=== PATIENT | female | born 1945 | race Caucasian/White ===

== ENCOUNTER 2017-04-17 03:07 | Inpatient (IN) | payer MEDICARE ==
[2017-04-17] MEDS ORDERED: NS 0.9% 1000 ML* 1,000 ML IV ONE (03:33)
[2017-04-17] MEDS ORDERED: Azithromycin IV(*) 500 MG in NS 0.9% 250 ML* 250 ML IVPB ONE (03:59)
[2017-04-17] MEDS ORDERED: cefTRIAXone(*) 1 GM in NS 0.9% 50 ML* 50 ML IVPB ONE (03:59)
[2017-04-17 04:21] LABS: Hematocrit 30 % (35-47); Hemoglobin 10.4 g/dl (12.0-16.0); Mean Corpuscular HGB Conc 34 g/dl (31-36); Mean Corpuscular Hemoglobin 30 pg (27-31); Mean Corpuscular Volume 88 fL (80-97); Mean Platelet Volume 7 um3 (7.4-10.4); Red Blood Count 3.43 10^6/ul (4.0-5.4); Red Cell Distribution Width 13 % (10.5-15); White Blood Count 10.3 10^3/ul (3.5-10.8)
[2017-04-17 04:25] LABS: Add Diff/Slide Review? Slide Review Added; Comments Flag Yes
[2017-04-17 04:36] LABS: ALT 22 U/L (7-52); AST 26 U/L (13-39); Alkaline Phosphatase 90 U/L (34-104); Anion Gap 10 mmol/L (2-11); BUN/Creatinine Ratio 30.9 (8-20); Blood Urea Nitrogen 34 mg/dL (6-24); C Reactive Protein 337.99 mg/L (< 5.00); CO2 Carbon Dioxide 22 mmol/L (22-32); Calcium 9.6 mg/dL (8.6-10.3); Chloride 97 mmol/L (101-111); EGFR African American 62.6 (>60); EGFR Non-African American 48.7 (>60); Globulin 3.5 g/dL (2-4); Glucose 205 mg/dL (70-100); Lipase < 10 U/L (11.0-82.0); Magnesium 1.7 mg/dL (1.9-2.7); Potassium 3.5 mmol/L (3.5-5.0); Sodium 129 mmol/L (133-145); Total Protein 6.5 g/dL (6.4-8.9)
[2017-04-17 04:37] LABS: PCO2 Arterial 37 mmHg (35-45)
[2017-04-17] MEDS ORDERED: Vancomycin(*) 1,000 MG in NS 0.9% 250 ML* 250 ML IVPB ONE (04:38)
[2017-04-17] MEDS ORDERED: Ondansetron INJ* 2 MG/ML VIAL IV PRN (05:37)
[2017-04-17] MEDS ORDERED: Morphine INJ* 2 MG/ML 1 ML SYRINGE (TWO MG - NEW SYRINGE VERSION) IV PRN (05:37)
[2017-04-17] MEDS ORDERED: Albuterol/Ipratropium NEB.SOL* Albuterol 2.5 MG/Ipratropium 0.5 MG 3 ML INH PRN (05:59)
[2017-04-17] MEDS ORDERED: Albuterol 2.5 MG/3 ML NEB.SOL* (0.083%) INH PRN (05:59)
[2017-04-17] MEDS ORDERED: methylPREDNISolone 125 MG* 2 ML VIAL IV ONE (05:59)
[2017-04-17] MEDS ORDERED: Heparin VIAL(*) 5000 UNITS/ML VIAL (FIVE THOUSAND) IV SCH (06:00)
[2017-04-17] MEDS ORDERED: NS 0.9% 1000 ML* 2,000 ML IV ONE (06:08)
[2017-04-17] MEDS ORDERED: NS 0.9% 1000 ML* 1,000 ML IV SCH (06:15)
[2017-04-17 06:25] LABS: Urine Bilirubin Negative (Negative); Urine Glucose 3+(>=500 mg/dL) (Negative); Urine Nitrite Negative (Negative)
--- NOTE | 2017-04-17 06:41 | ED ---
Ayesha Plata Gabriel, scribed for Nehemiah Chaudhary on 04/17/17 at 0336 . Altered Mental Status - HPI Summary HPI Summary: This patient is a 72 year old F BIBA to [facility] accompanied by son with a chief complaint of AMS since 6 hours prior. He son states she hasnt eaten in 3 days, has been sleeping more than usual, and hasnt been acting like herself. She does not recognize her son and isnt verbal. - History Of Current Complaint Chief Complaint: EDAltMentalStatus Stated Complaint: AMS Time Seen by Provider: 04/17/17 03:28 Hx Obtained From: Patient Onset/Duration: Still Present Timing: Constant Character: Confusion - Allergies/Home Medications Allergies/Adverse Reactions: Allergies Allergy/AdvReac Type Severity Reaction Status Date / Time Unable to Obtain Allergy Verified 04/17/17 03:26 Home Medications: Home Medications Calcium 250 mg PO 04/17/17 [History] DULoxetine DR CAP* [Cymbalta CAP*] 90 mg PO DAILY 04/17/17 [History Confirmed ] Docusate Sodium [Colace] 100 mg PO 04/17/17 [History] Dronabinol [Marinol] 10 mg PO 04/17/17 [History] Fenofibrate Micronized [Fenofibrate] 43 mg PO 04/17/17 [History] Gabapentin CAP(*) [Neurontin 100 mg CAP(*)] 200 mg PO TID 04/17/17 [History Confirmed 04/17/17] Lidocaine PATCH 5%* [Lidoderm 5% Patch*] 2 patch TRANSDERM DAILY 04/17/17 [ History Confirmed 04/17/17] Methylphenidate HCl [Ritalin] 5 mg PO 04/17/17 [History] Methylphenidate HCl [Ritalin] 20 mg PO 04/17/17 [History] Olmesartan Medoxomil [Benicar] 20 mg PO 04/17/17 [History] Omeprazole CAP* [Prilosec CAP* 20 MG] 20 mg PO DAILY 04/17/17 [History Confirmed 04/17/17] Oxycodone IR 10 MG(NF) 10 mg PO 04/17/17 [History] oxyCODONE SR TAB(*) [Oxycontin(*)] 15 mg PO 04/17/17 [History] PMH/Surg Hx/FS Hx/Imm Hx Previously Healthy: No Endocrine/Hematology History: Reports: Hx Diabetes - Cancer History Cancer Type, Location and Year: lung Infectious Disease History: No Infectious Disease History: Denies: Traveled Outside the [place] in Last 30 Days - Family History Known Family History: Positive: Hypertension, Diabetes, Other - cancer - Social History Alcohol Use: None Hx Substance Use: No Substance Use Type: Reports: Prescribed Hx Tobacco Use: No Smoking Status (MU): Never Smoked Tobacco Review of Systems Positive: Other - AMS All Other Systems Reviewed And Are Negative: No Physical Exam - Summary Physical Exam Summary: Appearance: lethargic and confused Skin: warm, dry, reflects adequate perfusion Head/face: normal Eyes: EOMI, FREDI ENT: Dry mucous membranes Neck: supple, non-tender Respiratory:decreased bs rt side Cardiovascular: Tachycardic Abdomen: non-tender, soft Bowel: present Musculoskeletal: normal, strength/ROM intact Neuro: lethargic and confused Triage Information Reviewed: Yes Vital Signs On Initial Exam: Initial Vitals Temp Pulse Resp BP Pulse Ox 98.1 F 100 10 127/103 90 04/17/17 03:17 04/17/17 03:17 04/17/17 03:17 04/17/17 03:17 04/17/17 03:17 Vital Signs Reviewed: Yes - Marshall Coma Scale Coma Scale Total: 10 Diagnostics - Vital Signs Vital Signs Temp Pulse Resp BP Pulse Ox 04/17/17 03:17 98.1 F 100 10 127/103 90 - Laboratory Lab Results: Lab Results 04/17/17 04/17/17 04/17/17 Range/Units 04:13 04:13 04:13 WBC 10.3 (3.5-10.8) 10^3/ul RBC 3.43 L (4.0-5.4) 10^6/ul Hgb 10.4 L (12.0-16.0) g/dl Hct 30 L (35-47) % MCV 88 (80-97) fL MCH 30 (27-31) pg MCHC 34 (31-36) g/dl RDW 13 (10.5-15) % Plt Count 258 (150-450) 10^3/ul MPV 7 L (7.4-10.4) um3 Neut % (Auto) 82.7 (38-83) % Lymph % (Auto) 7.1 L (25-47) % [place] % (Auto) 9.6 H (1-9) % Eos % (Auto) 0.2 (0-6) % Baso % (Auto) 0.4 (0-2) % Absolute Neuts (auto) 8.5 H (1.5-7.7) 10^3/ul Absolute Lymphs (auto) 0.7 L (1.0-4.8) 10^3/ul Absolute Monos (auto) 1.0 H (0-0.8) 10^3/ul Absolute Eos (auto) 0 (0-0.6) 10^3/ul Absolute Basos (auto) 0 (0-0.2) 10^3/ul Absolute Nucleated RBC 0 10^3/ul Nucleated RBC % 0 INR (Anticoag Therapy) 1.05 (0.89-1.11) APTT 26.7 (26.0-36.3) seconds Patient Temperature ABG pH (7.35-7.45) ABG pH (Temp Correct) ABG pCO2 (35-45) mmHg ABG pCO2 (Temp Corrct ABG pO2 (80-100) mmHg ABG pO2 (Temp Correct ABG HCO3 (19-31) mmol/L ABG O2 Saturation (95-98) % ABG Base Excess (-2.0-2.0) Respiration Rate O2 Delivery Device Ventilator Type Vent Mode FiO2 Inspiratory Time PEEP Pressure Support Pressure Control EPAP IPAP BiPAP Sodium 129 L (133-145) mmol/L Potassium 3.5 (3.5-5.0) mmol/L Chloride 97 L (101-111) mmol/L Carbon Dioxide 22 (22-32) mmol/L Anion Gap 10 (2-11) mmol/L BUN 34 H (6-24) mg/dL Creatinine 1.10 H (0.51-0.95) mg/dL Est GFR ( Amer) 62.6 (>60) Est GFR (Non-Af Amer) 48.7 (>60) BUN/Creatinine Ratio 30.9 H (8-20) Glucose 205 H (70-100) mg/dL Lactic Acid (0.5-2.0) mmol/L Calcium 9.6 (8.6-10.3) mg/dL Magnesium 1.7 L (1.9-2.7) mg/dL Total Bilirubin 0.90 (0.2-1.0) mg/dL AST 26 (13-39) U/L ALT 22 (7-52) U/L Alkaline Phosphatase 90 (34-104) U/L Troponin I 0.00 (<0.04) ng/mL C-Reactive Protein 337.99 H (< 5.00) mg/L Total Protein 6.5 (6.4-8.9) g/dL Albumin 3.0 L (3.2-5.2) g/dL Globulin 3.5 (2-4) g/dL Albumin/Globulin Ratio 0.9 L (1-3) Lipase < 10 L (11.0-82.0) U/L 04/17/17 04/17/17 Range/Units 04:13 04:28 WBC (3.5-10.8) 10^3/ul RBC (4.0-5.4) 10^6/ul Hgb (12.0-16.0) g/dl Hct (35-47) % MCV (80-97) fL MCH (27-31) pg MCHC (31-36) g/dl RDW (10.5-15) % Plt Count (150-450) 10^3/ul MPV (7.4-10.4) um3 Neut % (Auto) (38-83) % Lymph % (Auto) (25-47) % [place] % (Auto) (1-9) % Eos % (Auto) (0-6) % Baso % (Auto) (0-2) % Absolute Neuts (auto) (1.5-7.7) 10^3/ul Absolute Lymphs (auto) (1.0-4.8) 10^3/ul Absolute Monos (auto) (0-0.8) 10^3/ul Absolute Eos (auto) (0-0.6) 10^3/ul Absolute Basos (auto) (0-0.2) 10^3/ul Absolute Nucleated RBC 10^3/ul Nucleated RBC % INR (Anticoag Therapy) (0.89-1.11) APTT (26.0-36.3) seconds Patient Temperature Not Reportable ABG pH 7.42 (7.35-7.45) ABG pH (Temp Correct) Not Reportable ABG pCO2 37 (35-45) mmHg ABG pCO2 (Temp Corrct Not Reportable ABG pO2 59 L* (80-100) mmHg ABG pO2 (Temp Correct Not Reportable ABG HCO3 24.6 (19-31) mmol/L ABG O2 Saturation 93.4 L (95-98) % ABG Base Excess -0.3 (-2.0-2.0) Respiration Rate Not Reportable O2 Delivery Device oxymask Ventilator Type Not Reportable Vent Mode Not Reportable FiO2 Not Reportable Inspiratory Time Not Reportable PEEP Not Reportable Pressure Support Not Reportable Pressure Control Not Reportable EPAP Not Reportable IPAP Not Reportable BiPAP Not Reportable Sodium (133-145) mmol/L Potassium (3.5-5.0) mmol/L Chloride (101-111) mmol/L Carbon Dioxide (22-32) mmol/L Anion Gap (2-11) mmol/L BUN (6-24) mg/dL Creatinine (0.51-0.95) mg/dL Est GFR ( Amer) (>60) Est GFR (Non-Af Amer) (>60) BUN/Creatinine Ratio (8-20) Glucose (70-100) mg/dL Lactic Acid 1.0 (0.5-2.0) mmol/L Calcium (8.6-10.3) mg/dL Magnesium (1.9-2.7) mg/dL Total Bilirubin (0.2-1.0) mg/dL AST (13-39) U/L ALT (7-52) U/L Alkaline Phosphatase (34-104) U/L Troponin I (<0.04) ng/mL C-Reactive Protein (< 5.00) mg/L Total Protein (6.4-8.9) g/dL Albumin (3.2-5.2) g/dL Globulin (2-4) g/dL Albumin/Globulin Ratio (1-3) Lipase (11.0-82.0) U/L Result Diagrams: 04/17/17 04:13 04/17/17 04:13 Lab Statement: Any lab studies that have been ordered have been reviewed, and results considered in the medical decision making process. - Radiology CXR Radiology Interpretation Completed By: ED Physician - right upper and lower lobe infiltrate - CT CT Head CT Interpretation Completed By: Radiologist - mucosal thickening right maxillary sinus ED physician has reviewed this radiology report and agrees. - EKG 3:54 Cardiac Rate: NL EKG Rhythm: Sinus Rhythm - NSR at 98 BPM EKG Interpretation: Non specific ST/T changes Altered Mental Statu Course/Dx - Course Assessment/Plan: This patient is a 72 year old F BIBA to [facility] accompanied by son with a chief complaint of AMS since 6 hours prior. He son states she hasnt eaten in 3 days, has been sleeping more than usual, and hasnt been acting like herself. She does not recognize her son and isnt verbal. An EKG reveals NSR. CXR reveals, right lobe infiltrate. CT Brain reveals, per radiologist, mucosal thickening right maxillary sinus. Blood was drawn as well as an ABG which showed an O2 of 59 L. In the ED course the patient was given Albuterol and Azithromycin. We discussed patient care with Dr. Fontanez and they agreed to admit the patient. Patient will be admitted with a diagnoses of PNA, AMS, Septic shock , aspiration failure, and lung cancer. Patient with have follow up with Dr. Fontanez. - Diagnoses Differential Diagnosis/HQI/PQRI: CVA, Hypoxia, Intracranial Bleed, Metabolic Disorder, Sepsis, Other - septic shock/pneumonia/dehydration/lung cancer Discharge Diagnoses: PNA (pneumonia), Altered mental status, Septic shock, Dehydration, aspiration failure , Lung cancer - Provider Notifications Discussed Care Of Patient With: Herminia Fontanez Time Discussed With Above Provider: 05:29 Instructed by Provider To: Other - We discussed patient care with Dr. Fontanez and they agreed to admit the patient. - Critical Care Time Critical Care Time: 75-104 min - 60 minutes Discharge - Discharge Plan Condition: Stable Disposition: ADMITTED TO [facility] documentation as recorded by the Ayesha henderson Gabriel accurately reflects the service I personally performed and the decisions made by , Nehemiah Chaudhary.
[2017-04-17] MEDS: Heparin DRIP 25,000 UNITS(*) 25,000 UNITS/500 ML BAG IVPB SCH ×2 (06:48→07:54)
[2017-04-17] MEDS ORDERED: Cefepime 2 GM in Dextrose(*) 2 GM/50 ML BAG IV SCH (07:00)
--- NOTE | 2017-04-17 08:05 | RAD ---
INDICATION: Altered mental status. COMPARISON: There are no prior studies available for comparison. TECHNIQUE: A portable view of the chest was obtained. FINDINGS: The heart is within normal limits in size. The lungs are underinflated. There is a dense infiltrate present in the right mid and lower lung field and a round infiltrate which projects over the left hilar region. No pleural effusion is seen. IMPRESSION: BILATERAL INFILTRATES, RECOMMEND FOLLOW-UP CHEST X-RAYS TO RESOLUTION.
--- NOTE | 2017-04-17 08:06 | RAD ---
INDICATION: Altered mental status COMPARISON: None. TECHNIQUE: Contiguous axial sections of the brain were obtained from the skull base to the vertex without contrast. FINDINGS: The ventricles, cisterns and sulci are within normal limits. The cho-white matter differentiation is adequately maintained and there is no sulcal effacement. No significant focal abnormality or mass effect is present. There is no evidence for intracranial hemorrhage. Incidental note is made of hyperostosis frontalis interna. No significant focal osseous abnormality is present. There is moderate mucosal thickening and material in the partially visualized right maxillary sinus. IMPRESSION: Moderate mucosal thickening of the right maxillary sinus in this otherwise nonacute CT of the brain.
--- NOTE | 2017-04-17 09:46 | HP ---
CC: Dr. Minor * HISTORY AND PHYSICAL: DATE OF ADMISSION: 04/17/17 TIME OF EVALUATION: 0600 PRIMARY CARE PHYSICIAN: Dr. Minor, in [place] CHIEF COMPLAINT: Altered mental status. HISTORY OF PRESENT ILLNESS: This is a 72-year-old female who came in with altered mental status, unresponsive. The history was obtained from the son who is at the bedside and the daughter, Deena Conner, his healthcare proxy, over the phone. The patient normally resides in [place]. She just moved in to her daughter's house back in December 2016, who has been caring for her. Her children drove her to [place] to spend 2 weeks with the son, so the daughter could have a break. She came on 04/07/17. She spent most of her time in bed, which is not unusual for her. In the last 3 to 4 days, she has become more somnolent, not eating or drinking. She vomited 2 nights ago. Last evening, she was more altered. The son called the daughter and the daughter recommended coming to the emergency room for further evaluation. She never had any issues with altered mental status in the past. She has a lot of issues with chronic pain, complains of pain all the time. The son thought she was getting a cold. There had been a few sick contacts. Otherwise, review of systems is limited. In the emergency room, the patient was unresponsive, noted to be hypoxic, was placed on BiPAP, had labs, was given 500 mg of azithromycin, ceftriaxone 1 g, and vancomycin, and was referred to the hospitalist service for further evaluation. The patient has not had any significant weight loss according to the daughter. She has had decreased p.o. The daughter has been really encouraging improvement in her appetite. In the emergency room, I spoke with the son, the daughter, and also the primary care physician regarding gravity of the situation and concern for her prognosis. The primary care physician, Dr. Minor, does not think she wants to be intubated, the daughter would like her to be a full code until she arrives to the bedside for further assessment and reevaluation. PAST MEDICAL HISTORY: 1. Stage 3 lung cancer, diagnosed in 2009, status post surgery, chemo, and radiation; had a recurrence, diagnosed back in December 2015, was on Tarceva for 1 to 2 months, but could not tolerate the side effects. She has been having PET scan every few months. The tumor appears to be slow growing. The goal is to build up the strength, so that she can start a new targeted, directed therapy. 2. Diabetes. 3. Chronic back pain. 4. Spinal stenosis. 5. GERD. MEDICATIONS: Unknown. We will obtain med rec. FAMILY HISTORY: Unable to obtain. SOCIAL HISTORY: As mentioned, the patient lives in [place], just moved in with her daughter back in December. No history of smoking, alcohol or illicit drug use. She has 3 children. Her daughter, Deena Conner, is her healthcare proxy, phone # [phone]. CODE STATUS: As mentioned, the daughter wants her to be intubated. She is going to speak with the primary care physician again regarding prognosis as the primary care physician does not feel that the patient would want to be intubated. REVIEW OF SYSTEMS: Limited and unable to obtain due to patient's altered mental status. PHYSICAL EXAMINATION GENERAL: No acute distress, unresponsive, does moan to tactile stimuli. VITAL SIGNS: Temp 98.1, pulse rate 100, respiratory rate 12, oxygen saturation 98% on BiPAP of FiO2 100%, blood pressure 95/63. HEENT: Head normocephalic. Eyes with purulent drainage bilaterally. Conjunctivae injected. Pupils are sluggish bilaterally. Oropharynx: BiPAP is in place. NECK: Supple. RESPIRATORY: Coarse rhonchorous breath sounds bilaterally with expiratory wheezing. CARDIAC: Tachycardiac. ABDOMEN: Soft, nontender. EXTREMITIES: Trace pretibial edema NEUROLOGIC: The patient is somnolent, moans with tactile stimulation. No spontaneous movements. DIAGNOSTIC STUDIES/LAB DATA: White count 10.3, hemoglobin 10.4, hematocrit 30 , platelets 258. INR is 1.05. Blood gas pH 7.42, PCO2 of 37, PO2 of 59. Sodium 129, potassium 3.5, chloride 97, bicarb 22, BUN 34, creatinine 1.10, glucose 205, magnesium 1.7. CRP is 337. Troponin is 0. Chest x-ray: Significant opacification and interstitial edema on the right lung with opacification and apparent mass-like appearance on the right, with some prominent interstitial markings on the left side as well. EKG shows normal sinus rhythm. Head CT with no acute findings. ASSESSMENT: This is a 72-year-old female with past medical history of lung cancer with a poor performance status, who presented to the emergency room with altered mental status, found to be in acute respiratory failure. 1. Acute respiratory failure. Assessment: The patient is hypoxic on BiPAP, but maintaining her sats on 100% FiO2. The concern is progression of her malignancy with likely underlying pneumonia and possibly PE in the setting of malignancy and a long car ride about a week ago. I have spoken with the son and daughter and the primary care at length regarding her poor prognosis. I also spoke with Dr. Lopez again. I have the impression that the patient would not want to be intubated; however, the daughter, who is the primary caregiver does not want to make that decision until she is present. The plan is to maintain her on BiPAP for now. We will lower her FiO2 per Dr. Lopez's suggestion to see if she can maintain her sats. If she cannot maintain her sats, then we will have to re-discuss intubation. We will continue her on broad-spectrum antibiotics including cefepime and azithromycin. I am going to give her a dose of Solu-Medrol as well in the setting of her wheezing and breathing treatments for concern for PE and place her on heparin until she becomes more stabilized to get a CTA of the chest. We will follow up on her blood cultures and Dr. Lopez to take over service in the morning. 2. Altered mental status A. Unclear the etiology. She appears to be on a lot of narcotics for chronic pain. Could be encephalopathy from respiratory failure. Plan Recommend further investigation if mentation does not improve. 2. Chronic medical problems. The patient has significant amount of pain. We will give morphine 2 mg every 2 hours as needed. I will obtain med rec, at this time she is n.p.o. though. 3. FEN: N.p.o. IV fluids ordered. 4. DVT prophylaxis: The patient scores high risk. She will be on heparin drip right now prophylactically for presumed PE. 5. Code status: Currently is a full code, but this needs to be readdressed once the daughter arrives into town. PATIENT TIME: Greater than 75 minutes were spent doing the history and physical , more than half the time spent in direct patient contact, speaking with the family, the primary care physician, and Dr. Lopez. [id number]/[facility] #: [id number] [facility]
[2017-04-17] MEDS ORDERED: Dextrose 50% Syringe 50 ML* 25 GM/50 ML SYRINGE IV PUSH PRN (11:59)
[2017-04-17 12:35] LABS: TSH (Thyroid Stimulating Horm) 1.77 mcIU/mL (0.34-5.60)
--- NOTE | 2017-04-17 12:58 | PN ---
Progress Note - Progress Note Date of Service: 04/17/17 Note: CRITICAL CARE MEDICINE Date: 04/17/17 Time: 1120 SUBJECTIVE: Patient seen and examined. son at bedside PHYSICAL EXAM: Vital Signs: Reviewed. Neurologic: awakens, and moans; fights off pain. kinney. barrier to language HEENT: pupils equal. Sclera anicteric. Trachea midline. Cardiovascular: S1 S2 Respiratory: coarse on R with rales but no wheeze Abdomen: Soft, nt. No r/g/r. Extremities: Warm. LABS: Reviewed. IMAGING: Reviewed. MEDICATIONS: Reviewed. ASSESSMENT: 72 F Acute hypoxic resp failure Sepsis on admission sec to cap Septic encephalopathy vs toxic/metabolic h/o stage 3 lung ca.. PLAN: Neurologic: improved, and son stating baseline is always a little off. encephalopathy may be multifactoial but behaving more like drug affect. no CO2 narcosis. septic encephalpathy also possibility and being treated Cardiovascular: Perfusing. vol status met. Respiratory: Question how much acute vs chronic. off bipap now and see how she equilibrates. tx for cap. pulm rayiet. see if she can communicate needs. can hold off on cta as pe unlikely. Gastrointestinal: po later. Renal/Metabolic: repleating lytes and f/u Infectious Disease: tx for cap with C3 and azithro. f/u cx Hematology: stable. outpt onc f/u Endocrine: check tsh; ssi Musculoskeletal: oob as able. Psych/Social: daughter coming, and seems to understand more of pts chronic care and will need to confer with her. Supportive and preventative care as ordered. Vaccine: f/u SUP: po VTE prophylaxis: heparin Horowitz catheter given critical illness, monitoring needs for accurate assessment of SHIRA and KDIGO criteria for critically ill patients and to avoid potential harms of urinary retention, skin breakdown/ulcers. Disposition: ICU Code Status: Full currently Critical Care Time: 40min Ling Lopez DO
[2017-04-17] MEDS: Insulin LISPRO* 1 UNITS UNIT SUBCUT SCH ×2 (18:50→20:59)
[2017-04-17] MEDS: Morphine INJ* 2 MG/ML 1 ML SYRINGE (TWO MG - NEW SYRINGE VERSION) IV PRN ×2 (21:32→23:25)
[2017-04-17] MEDS ORDERED: ALPRAZolam TAB* 0.25 MG PO PRN (23:29)
[2017-04-18] MEDS: Insulin LISPRO* 1 UNITS UNIT SUBCUT SCH ×4 (00:20→18:05)
[2017-04-18] MEDS: Morphine INJ* 2 MG/ML 1 ML SYRINGE (TWO MG - NEW SYRINGE VERSION) IV PRN ×3 (02:43→07:22)
[2017-04-18] MEDS: Lidocaine PATCH 5%* 1 PATCH TRANSDERM SCH ×3 (03:09→12:24)
[2017-04-18] MEDS: cefTRIAXone VIAL(*) 1,000 MG in D5W 50 ML BAG* 50 ML IVPB SCH (04:01)
[2017-04-18] MEDS: Azithromycin IV(*) 250 MG in NS 0.9% 250 ML* 250 ML IVPB SCH (05:00)
[2017-04-18] MEDS ORDERED: Insulin GLARGINE(*) 1 UNITS UNIT SUBCUT SCH ×2 (06:00→21:00)
[2017-04-18] MEDS: oxyCODONE SR TAB(*) 15 MG TAB.SR PO SCH ×3 (11:04→21:12)
[2017-04-18] MEDS: Enoxaparin(*) 40 MG/0.4 ML SYR SUBCUT SCH (11:04)
[2017-04-18] MEDS: oxyCODONE TAB* 5 MG TAB PO PRN (11:04)
--- NOTE | 2017-04-18 11:09 | PN ---
Progress Note - Progress Note Date of Service: 04/18/17
[2017-04-18] MEDS ORDERED: Methylphenidate TAB* 10 MG PO SCH (12:00)
[2017-04-18] MEDS ORDERED: Methylphenidate TAB* 5 MG PO SCH (16:00)
[2017-04-18] MEDS ORDERED: Gabapentin CAP(*) 100 MG PO SCH (18:00)
[2017-04-18] MEDS ORDERED: DULoxetine DR CAP* 30 MG CAP.DR PO SCH (18:00)
[2017-04-18] MEDS: Docusate CAP* 100 MG PO SCH (21:12)
[2017-04-18] MEDS: Insulin GLARGINE(*) 1 UNITS UNIT SUBCUT SCH (21:12)
[2017-04-18] MEDS: Lidocaine Patch REMOVE* 1 NOTE MISC PATCH OFF SCH (21:18)
[2017-04-19] MEDS: cefTRIAXone VIAL(*) 1,000 MG in D5W 50 ML BAG* 50 ML IVPB SCH (04:49)
[2017-04-19] MEDS: Azithromycin IV(*) 250 MG in NS 0.9% 250 ML* 250 ML IVPB SCH (05:45)
[2017-04-19] MEDS ORDERED: Methylphenidate TAB* 10 MG PO SCH ×2 (06:00→09:03)
[2017-04-19 07:29] LABS: Hematocrit 34 % (35-47); Hemoglobin 11.5 g/dl (12.0-16.0); Mean Corpuscular HGB Conc 34 g/dl (31-36); Mean Corpuscular Hemoglobin 30 pg (27-31); Mean Corpuscular Volume 87 fL (80-97); Mean Platelet Volume 7 um3 (7.4-10.4); Red Blood Count 3.84 10^6/ul (4.0-5.4); Red Cell Distribution Width 13 % (10.5-15); White Blood Count 8.3 10^3/ul (3.5-10.8)
[2017-04-19 07:29] LABS: BUN/Creatinine Ratio 39.6 (8-20); EGFR African American 145.4 (>60); EGFR Non-African American 113.1 (>60); Potassium 3.3 mmol/L (3.5-5.0)
[2017-04-19 07:31] LABS: Comments Flag Yes
[2017-04-19 07:32] LABS: Add Diff/Slide Review? Slide Review Added
--- NOTE | 2017-04-19 09:10 | PN ---
Subjective Date of Service: 04/19/17 Interval History: Patient offers no c/o. She appears to understand [place] adequately. Objective Active Medications: Albuterol (Ventolin 2.5 Mg/3 Ml Neb.Delilah*) 2.5 mg INH Q2H PRN PRN Reason: SOB/WHEEZING Albuterol/Ipratropium (Duoneb (Albuterol 2.5 Mg/Ipratropium 0.5 Mg)) 1 neb INH Q4H PRN PRN Reason: SOB/WHEEZING Alprazolam (Xanax Tab*) 0.25 mg PO Q8H PRN PRN Reason: ANXIETY Last Admin: 04/18/17 00:20 Dose: 0.25 mg Dextrose (D50w Syringe 50 Ml*) 12.5 gm IV PUSH .FOR FS < 60 - SS PRN PRN Reason: FS < 60 Duloxetine HCl (Cymbalta Cap*) 60 mg PO QPM@2100 [facility] Enoxaparin Sodium (Lovenox(*)) 40 mg SUBCUT Q24H [facility] Last Admin: 04/18/17 11:04 Dose: 40 mg Azithromycin 250 mg/ Sodium (Chloride) 250 mls @ 250 mls/hr IVPB Q24H [facility] Last Admin: 04/19/17 05:45 Dose: 250 mls/hr Ceftriaxone Sodium 1,000 mg/ (Dextrose) 50 mls @ 200 mls/hr IVPB Q24H [facility] Last Admin: 04/19/17 04:49 Dose: 200 mls/hr Insulin Glargine (Lantus(*)) 18 units SUBCUT BEDTIME [facility] Last Admin: 04/18/17 21:12 Dose: 18 unit Insulin Human Lispro (Humalog*) 0 units SUBCUT AC [facility] PRN Reason: Protocol Last Admin: 04/18/17 18:05 Dose: 2 units Lidocaine (Lidoderm 5% Patch*) 3 patch TRANSDERM DAILY [facility] Methylphenidate HCl (Ritalin Tab*) 5 mg PO 1600 [facility] Last Admin: 04/18/17 15:21 Dose: 5 mg Methylphenidate HCl (Ritalin Tab*) 20 mg PO 0600 [facility] Last Admin: 04/19/17 05:50 Dose: 20 mg Methylphenidate HCl (Ritalin Tab*) 10 mg PO 1200 [facility] Morphine Sulfate (Morphine Inj (Syringe)*) 2 mg IV Q2HR PRN PRN Reason: PAIN Last Admin: 04/18/17 07:22 Dose: 2 mg Omeprazole (Prilosec Cap*) 20 mg PO QAM [facility] Ondansetron HCl (Zofran Inj*) 4 mg IV Q4H PRN PRN Reason: NAUSEA/VOMITING Oxycodone HCl (Roxycodone Tab*) 10 mg PO QID PRN PRN Reason: PAIN Last Admin: 04/18/17 11:04 Dose: 10 mg Oxycodone HCl (Oxycontin(*)) 30 mg PO TID [facility] Last Admin: 04/18/17 21:12 Dose: 30 mg Pharmacy Profile Note (Lidocaine Patch Remove*) 1 note PATCH OFF 2099 [facility] Last Admin: 04/18/17 21:18 Dose: 1 note Potassium Chloride (Klor Con Er Tab*) 20 meq PO TID [facility] Stop: 04/20/17 13:00 Vital Signs 04/18/17 04/18/17 04/18/17 09:18 10:00 11:00 Temperature Pulse Rate 99 99 99 Respiratory 22 18 21 Rate Blood Pressure 168/96 (mmHg) O2 Sat by Pulse 95 99 91 Oximetry 04/18/17 04/18/17 04/18/17 11:04 12:01 12:02 Temperature Pulse Rate 96 97 Respiratory 23 Rate Blood Pressure 166/94 (mmHg) O2 Sat by Pulse 95 95 Oximetry 04/18/17 04/18/17 04/18/17 13:00 14:00 14:29 Temperature Pulse Rate 96 92 99 Respiratory 11 14 13 Rate Blood Pressure 162/95 (mmHg) O2 Sat by Pulse 96 96 96 Oximetry 04/18/17 04/18/17 04/18/17 15:00 15:21 16:00 Temperature Pulse Rate 104 96 Respiratory 25 13 10 Rate Blood Pressure (mmHg) O2 Sat by Pulse 91 99 Oximetry 04/18/17 04/18/17 04/18/17 16:26 17:00 18:06 Temperature 98.5 F Pulse Rate 101 Respiratory 22 16 Rate Blood Pressure (mmHg) O2 Sat by Pulse 94 Oximetry 04/18/17 04/18/17 04/18/17 19:11 20:00 21:12 Temperature 98.0 F Pulse Rate 102 Respiratory 24 18 18 Rate Blood Pressure 164/76 (mmHg) O2 Sat by Pulse 98 Oximetry 04/19/17 04/19/1717 00:07 01:52 03:23 Temperature 98.2 F 98.7 F Pulse Rate 96 95 Respiratory 16 18 18 Rate Blood Pressure 131/54 131/70 (mmHg) O2 Sat by Pulse 95 98 Oximetry 04/19/17 07:58 Temperature 98.9 F Pulse Rate 99 Respiratory 20 Rate Blood Pressure 162/79 (mmHg) O2 Sat by Pulse 96 Oximetry Oxygen Devices in Use Now: Nasal Cannula Appearance: Alert, sitting on the edge of her bed. Neutral affect. Appears restless. Eyes: No Scleral Icterus Respiratory: Symmetrical Chest Expansion and Respiratory Effort, Clear to Auscultation, Clear to Percussion Cardiovascular: NL Sounds; No Murmurs; No JVD, RRR, No Edema, - Extremities: No Edema, No Clubbing, Cyanosis, - Skin: No Rash or Ulcers, No Nodules or Sclerosis Neurological: NL Sensation - She states she lives in [place] with her son, names him. Not oriented to place. No tremor. Result Diagrams: 04/19/17 07:15 04/19/17 06:08 Additional Lab and Data: Lab Results 04/17/17 04/17/17 04/17/17 Range/Units 04:13 04:13 04:13 WBC 10.3 (3.5-10.8) 10^3/ul RBC 3.43 L (4.0-5.4) 10^6/ul Hgb 10.4 L (12.0-16.0) g/dl Hct 30 L (35-47) % MCV 88 (80-97) fL MCH 30 (27-31) pg MCHC 34 (31-36) g/dl RDW 13 (10.5-15) % Plt Count 258 (150-450) 10^3/ul MPV 7 L (7.4-10.4) um3 Neut % (Auto) 82.7 (38-83) % Lymph % (Auto) 7.1 L (25-47) % [place] % (Auto) 9.6 H (1-9) % Eos % (Auto) 0.2 (0-6) % Baso % (Auto) 0.4 (0-2) % Absolute Neuts (auto) 8.5 H (1.5-7.7) 10^3/ul Absolute Lymphs (auto) 0.7 L (1.0-4.8) 10^3/ul Absolute Monos (auto) 1.0 H (0-0.8) 10^3/ul Absolute Eos (auto) 0 (0-0.6) 10^3/ul Absolute Basos (auto) 0 (0-0.2) 10^3/ul Absolute Nucleated RBC 0 10^3/ul Nucleated RBC % 0 INR (Anticoag Therapy) 1.05 (0.89-1.11) APTT 26.7 (26.0-36.3) seconds Patient Temperature ABG pH (7.35-7.45) ABG pH (Temp Correct) ABG pCO2 (35-45) mmHg ABG pCO2 (Temp Corrct ABG pO2 (80-100) mmHg ABG pO2 (Temp Correct ABG HCO3 (19-31) mmol/L ABG O2 Saturation (95-98) % ABG Base Excess (-2.0-2.0) Respiration Rate O2 Delivery Device Ventilator Type Vent Mode FiO2 Inspiratory Time PEEP Pressure Support Pressure Control EPAP IPAP BiPAP Sodium 129 L (133-145) mmol/L Potassium 3.5 (3.5-5.0) mmol/L Chloride 97 L (101-111) mmol/L Carbon Dioxide 22 (22-32) mmol/L Anion Gap 10 (2-11) mmol/L BUN 34 H (6-24) mg/dL Creatinine 1.10 H (0.51-0.95) mg/dL Est GFR ( Amer) 62.6 (>60) Est GFR (Non-Af Amer) 48.7 (>60) BUN/Creatinine Ratio 30.9 H (8-20) Glucose 205 H (70-100) mg/dL Lactic Acid (0.5-2.0) mmol/L Calcium 9.6 (8.6-10.3) mg/dL Magnesium 1.7 L (1.9-2.7) mg/dL Total Bilirubin 0.90 (0.2-1.0) mg/dL AST 26 (13-39) U/L ALT 22 (7-52) U/L Alkaline Phosphatase 90 (34-104) U/L Troponin I 0.00 (<0.04) ng/mL C-Reactive Protein 337.99 H (< 5.00) mg/L Total Protein 6.5 (6.4-8.9) g/dL Albumin 3.0 L (3.2-5.2) g/dL Globulin 3.5 (2-4) g/dL Albumin/Globulin Ratio 0.9 L (1-3) Lipase < 10 L (11.0-82.0) U/L 04/17/17 04/17/17 Range/Units 04:13 04:28 WBC (3.5-10.8) 10^3/ul RBC (4.0-5.4) 10^6/ul Hgb (12.0-16.0) g/dl Hct (35-47) % MCV (80-97) fL MCH (27-31) pg MCHC (31-36) g/dl RDW (10.5-15) % Plt Count (150-450) 10^3/ul MPV (7.4-10.4) um3 Neut % (Auto) (38-83) % Lymph % (Auto) (25-47) % [place] % (Auto) (1-9) % Eos % (Auto) (0-6) % Baso % (Auto) (0-2) % Absolute Neuts (auto) (1.5-7.7) 10^3/ul Absolute Lymphs (auto) (1.0-4.8) 10^3/ul Absolute Monos (auto) (0-0.8) 10^3/ul Absolute Eos (auto) (0-0.6) 10^3/ul Absolute Basos (auto) (0-0.2) 10^3/ul Absolute Nucleated RBC 10^3/ul Nucleated RBC % INR (Anticoag Therapy) (0.89-1.11) APTT (26.0-36.3) seconds Patient Temperature Not Reportable ABG pH 7.42 (7.35-7.45) ABG pH (Temp Correct) Not Reportable ABG pCO2 37 (35-45) mmHg ABG pCO2 (Temp Corrct Not Reportable ABG pO2 59 L* (80-100) mmHg ABG pO2 (Temp Correct Not Reportable ABG HCO3 24.6 (19-31) mmol/L ABG O2 Saturation 93.4 L (95-98) % ABG Base Excess -0.3 (-2.0-2.0) Respiration Rate Not Reportable O2 Delivery Device oxymask Ventilator Type Not Reportable Vent Mode Not Reportable FiO2 Not Reportable Inspiratory Time Not Reportable PEEP Not Reportable Pressure Support Not Reportable Pressure Control Not Reportable EPAP Not Reportable IPAP Not Reportable BiPAP Not Reportable Sodium (133-145) mmol/L Potassium (3.5-5.0) mmol/L Chloride (101-111) mmol/L Carbon Dioxide (22-32) mmol/L Anion Gap (2-11) mmol/L BUN (6-24) mg/dL Creatinine (0.51-0.95) mg/dL Est GFR ( Amer) (>60) Est GFR (Non-Af Amer) (>60) BUN/Creatinine Ratio (8-20) Glucose (70-100) mg/dL Lactic Acid 1.0 (0.5-2.0) mmol/L Calcium (8.6-10.3) mg/dL Magnesium (1.9-2.7) mg/dL Total Bilirubin (0.2-1.0) mg/dL AST (13-39) U/L ALT (7-52) U/L Alkaline Phosphatase (34-104) U/L Troponin I (<0.04) ng/mL C-Reactive Protein (< 5.00) mg/L Total Protein (6.4-8.9) g/dL Albumin (3.2-5.2) g/dL Globulin (2-4) g/dL Albumin/Globulin Ratio (1-3) Lipase (11.0-82.0) U/L Microbiology and Other Data: Microbiology 04/17/17 06:01 Legionella Urinary Antigen - Final Urine Negative Legionella Streptococcus pneumoniae Ag Screen - Final Negative S. pneumo Antigen Assess/Plan/Problems-Billing Assessment: - Patient Problems (1) Altered mental status Current Visit: Yes Status: Acute Code(s): R41.82 - ALTERED MENTAL STATUS, UNSPECIFIED SNOMED Code(s): 408991776 Comment: Not clear if due to sepsis and/or meds. (2) Lung cancer Current Visit: Yes Status: Acute Code(s): C34.90 - MALIGNANT NEOPLASM OF UNSP PART OF UNSP BRONCHUS OR LUNG SNOMED Code(s): 449867928 Comment: Prior records would be helpful. Changes on CXR may in whole or part be due to previous RT. (3) Polypharmacy Current Visit: Yes Status: Acute Code(s): Z79.899 - OTHER LONGTERM (CURRENT ) DRUG THERAPY SNOMED Code(s): 780169525 Comment: Will decrease duloxetine dose--could contribute to serotonin syndrome. Reduce methylphenidate dose, stop gabapentin. (4) HTN (hypertension) Current Visit: Yes Status: Acute Code(s): I10 - ESSENTIAL (PRIMARY) HYPERTENSION SNOMED Code(s): 58140100 Comment: Olmesartan on hold.
[2017-04-19] MEDS: Insulin LISPRO* 1 UNITS UNIT SUBCUT SCH ×3 (09:26→17:46)
[2017-04-19] MEDS: oxyCODONE SR TAB(*) 15 MG TAB.SR PO SCH ×3 (09:27→21:28)
[2017-04-19] MEDS: Omeprazole CAP* 20 MG PO SCH (09:27)
[2017-04-19] MEDS: Lidocaine PATCH 5%* 1 PATCH TRANSDERM SCH (09:31)
[2017-04-19] MEDS: Enoxaparin(*) 40 MG/0.4 ML SYR SUBCUT SCH (09:34)
[2017-04-19] MEDS ORDERED: Lidocaine 2.5%/Prilocain 2.5%* 5 GM TUBE TOPICAL ONE (11:30)
[2017-04-19] MEDS ORDERED: Methylphenidate TAB* 10 MG PO PRN (11:37)
[2017-04-19] MEDS ORDERED: Methylphenidate TAB* 5 MG PO PRN (11:37)
[2017-04-19] MEDS: Docusate CAP* 100 MG PO SCH (11:55)
[2017-04-19] MEDS: Potassium Chlor TAB* 10 MEQ TAB.ER PO SCH ×3 (11:57→21:29)
[2017-04-19] MEDS: MEGESTROL 40 MG/ML PO SCH ×2 (14:08→14:12)
[2017-04-19] MEDS: Megestrol SUSP* 400 MG/10 ML UDC PO SCH (14:12)
[2017-04-19] MEDS: oxyCODONE TAB* 5 MG TAB PO PRN (17:45)
[2017-04-19] MEDS: Dronabinol CAP* 2.5 MG PO SCH (21:29)
[2017-04-19] MEDS: Insulin GLARGINE(*) 1 UNITS UNIT SUBCUT SCH (21:30)
[2017-04-19] MEDS: DULoxetine DR CAP* 60 MG CAP.DR PO SCH (21:31)
[2017-04-19] MEDS: Lidocaine Patch REMOVE* 1 NOTE MISC PATCH OFF SCH (21:37)
[2017-04-20] MEDS: cefTRIAXone VIAL(*) 1,000 MG in D5W 50 ML BAG* 50 ML IVPB SCH (03:48)
[2017-04-20] MEDS: Azithromycin IV(*) 250 MG in NS 0.9% 250 ML* 250 ML IVPB SCH (05:40)
[2017-04-20] MEDS: oxyCODONE TAB* 5 MG TAB PO PRN ×3 (05:48→23:57)
[2017-04-20] MEDS: Insulin LISPRO* 1 UNITS UNIT SUBCUT SCH ×3 (09:32→17:13)
[2017-04-20] MEDS: Lidocaine PATCH 5%* 1 PATCH TRANSDERM SCH (09:34)
[2017-04-20] MEDS: Potassium Chlor TAB* 10 MEQ TAB.ER PO SCH (09:34)
[2017-04-20] MEDS: Megestrol SUSP* 400 MG/10 ML UDC PO SCH (09:34)
[2017-04-20] MEDS: oxyCODONE SR TAB(*) 15 MG TAB.SR PO SCH ×3 (09:34→21:44)
[2017-04-20] MEDS: Omeprazole CAP* 20 MG PO SCH (09:34)
[2017-04-20] MEDS: Dronabinol CAP* 2.5 MG PO SCH ×3 (09:34→21:44)
[2017-04-20] MEDS: Enoxaparin(*) 40 MG/0.4 ML SYR SUBCUT SCH (09:35)
--- NOTE | 2017-04-20 12:25 | PN ---
Subjective Date of Service: 04/20/17 Interval History: Little change. Appetite a little better today. Hx obtained through daughter at the bedside. Objective Active Medications: Albuterol (Ventolin 2.5 Mg/3 Ml Neb.Delilah*) 2.5 mg INH Q2H PRN PRN Reason: SOB/WHEEZING Albuterol/Ipratropium (Duoneb (Albuterol 2.5 Mg/Ipratropium 0.5 Mg)) 1 neb INH Q4H PRN PRN Reason: SOB/WHEEZING Alprazolam (Xanax Tab*) 0.25 mg PO Q8H PRN PRN Reason: ANXIETY Last Admin: 04/18/17 00:20 Dose: 0.25 mg Dextrose (D50w Syringe 50 Ml*) 12.5 gm IV PUSH .FOR FS < 60 - SS PRN PRN Reason: FS < 60 Dronabinol (Marinol Cap*) 10 mg PO TID [facility] Last Admin: 04/20/17 09:34 Dose: 10 mg Duloxetine HCl (Cymbalta Cap*) 60 mg PO QPM@2100 [facility] Last Admin: 04/19/17 21:31 Dose: 60 mg Enoxaparin Sodium (Lovenox(*)) 40 mg SUBCUT Q24H [facility] Last Admin: 04/20/17 09:35 Dose: 40 mg Azithromycin 250 mg/ Sodium (Chloride) 250 mls @ 250 mls/hr IVPB Q24H [facility] Last Admin: 04/20/17 05:40 Dose: 250 mls/hr Ceftriaxone Sodium 1,000 mg/ (Dextrose) 50 mls @ 200 mls/hr IVPB Q24H [facility] Last Admin: 04/20/17 03:48 Dose: 200 mls/hr Insulin Glargine (Lantus(*)) 18 units SUBCUT BEDTIME [facility] Last Admin: 04/19/17 21:30 Dose: 18 unit Insulin Human Lispro (Humalog*) 0 units SUBCUT AC [facility] PRN Reason: Protocol Last Admin: 04/20/17 09:32 Dose: 2 units Lidocaine (Lidoderm 5% Patch*) 3 patch TRANSDERM DAILY [facility] Last Admin: 04/20/17 09:34 Dose: 3 patch Megestrol Acetate (Megestrol Susp*) 400 mg PO QAM [facility] Last Admin: 04/20/17 09:34 Dose: 400 mg Methylphenidate HCl (Ritalin Tab*) 20 mg PO 1200 PRN PRN Reason: BEHAVIOR Methylphenidate HCl (Ritalin Tab*) 20 mg PO 0600 PRN PRN Reason: BEHAVIOR Methylphenidate HCl (Ritalin Tab*) 5 mg PO 1600 PRN PRN Reason: BEHAVIOR Morphine Sulfate (Morphine Inj (Syringe)*) 2 mg IV Q2HR PRN PRN Reason: PAIN Last Admin: 04/18/17 07:22 Dose: 2 mg Omeprazole (Prilosec Cap*) 20 mg PO QAM [facility] Last Admin: 04/20/17 09:34 Dose: 20 mg Ondansetron HCl (Zofran Inj*) 4 mg IV Q4H PRN PRN Reason: NAUSEA/VOMITING Last Admin: 04/19/17 13:59 Dose: 4 mg Oxycodone HCl (Roxycodone Tab*) 10 mg PO QID PRN PRN Reason: PAIN Last Admin: 04/20/17 05:48 Dose: 10 mg Oxycodone HCl (Oxycontin(*)) 30 mg PO TID [facility] Last Admin: 04/20/17 09:34 Dose: 30 mg Pharmacy Profile Note (Lidocaine Patch Remove*) 1 note PATCH OFF 2100 [facility] Last Admin: 04/19/17 21:37 Dose: 1 note Potassium Chloride (Klor Con Er Tab*) 20 meq PO TID [facility] Stop: 04/20/17 13:00 Last Admin: 04/20/17 09:34 Dose: 20 meq Vital Signs 04/19/17 04/19/17 04/19/17 17:45 19:27 20:00 Temperature 98.6 F Pulse Rate 98 Respiratory 18 16 16 Rate Blood Pressure 139/75 (mmHg) O2 Sat by Pulse 100 Oximetry 04/19/17 04/19/17 04/19/17 21:19 21:28 21:29 Temperature 98.2 F Pulse Rate 98 Respiratory 18 18 18 Rate Blood Pressure 134/80 (mmHg) O2 Sat by Pulse 95 Oximetry 04/19/17 04/19/17 04/19/17 22:45 22:48 23:27 Temperature 98.0 F Pulse Rate 104 Respiratory 18 Rate Blood Pressure 140/65 (mmHg) O2 Sat by Pulse 100 97 98 Oximetry 04/20/17 04/20/17 04/20/17 00:13 00:14 03:53 Temperature 97.3 F Pulse Rate 107 Respiratory 18 18 22 Rate Blood Pressure 169/85 (mmHg) O2 Sat by Pulse 94 Oximetry 04/20/17 04/20/17 04/20/17 05:48 08:00 08:12 Temperature 98.5 F Pulse Rate 99 Respiratory 25 20 20 Rate Blood Pressure 139/71 (mmHg) O2 Sat by Pulse 99 Oximetry 04/20/17 04/20/17 04/20/17 09:33 09:34 12:10 Temperature Pulse Rate Respiratory 20 20 18 Rate Blood Pressure (mmHg) O2 Sat by Pulse Oximetry Oxygen Devices in Use Now: Nasal Cannula Appearance: Lying quietly on R side in bed. Looks comfortable. Respiratory: Symmetrical Chest Expansion and Respiratory Effort, Clear to Auscultation, Clear to Percussion Cardiovascular: NL Sounds; No Murmurs; No JVD, RRR, No Edema, - Extremities: No Clubbing, Cyanosis, - - 1+ edema BL Skin: No Rash or Ulcers, No Nodules or Sclerosis, - Neurological: NL Sensation, NL Gait, - Result Diagrams: 04/19/17 07:15 04/19/17 06:08 Additional Lab and Data: Lab Results 04/17/17 04/17/17 04/17/17 Range/Units 04:13 04:13 04:13 WBC 10.3 (3.5-10.8) 10^3/ul RBC 3.43 L (4.0-5.4) 10^6/ul Hgb 10.4 L (12.0-16.0) g/dl Hct 30 L (35-47) % MCV 88 (80-97) fL MCH 30 (27-31) pg MCHC 34 (31-36) g/dl RDW 13 (10.5-15) % Plt Count 258 (150-450) 10^3/ul MPV 7 L (7.4-10.4) um3 Neut % (Auto) 82.7 (38-83) % Lymph % (Auto) 7.1 L (25-47) % [place] % (Auto) 9.6 H (1-9) % Eos % (Auto) 0.2 (0-6) % Baso % (Auto) 0.4 (0-2) % Absolute Neuts (auto) 8.5 H (1.5-7.7) 10^3/ul Absolute Lymphs (auto) 0.7 L (1.0-4.8) 10^3/ul Absolute Monos (auto) 1.0 H (0-0.8) 10^3/ul Absolute Eos (auto) 0 (0-0.6) 10^3/ul Absolute Basos (auto) 0 (0-0.2) 10^3/ul Absolute Nucleated RBC 0 10^3/ul Nucleated RBC % 0 INR (Anticoag Therapy) 1.05 (0.89-1.11) APTT 26.7 (26.0-36.3) seconds Patient Temperature ABG pH (7.35-7.45) ABG pH (Temp Correct) ABG pCO2 (35-45) mmHg ABG pCO2 (Temp Corrct ABG pO2 (80-100) mmHg ABG pO2 (Temp Correct ABG HCO3 (19-31) mmol/L ABG O2 Saturation (95-98) % ABG Base Excess (-2.0-2.0) Respiration Rate O2 Delivery Device Ventilator Type Vent Mode FiO2 Inspiratory Time PEEP Pressure Support Pressure Control EPAP IPAP BiPAP Sodium 129 L (133-145) mmol/L Potassium 3.5 (3.5-5.0) mmol/L Chloride 97 L (101-111) mmol/L Carbon Dioxide 22 (22-32) mmol/L Anion Gap 10 (2-11) mmol/L BUN 34 H (6-24) mg/dL Creatinine 1.10 H (0.51-0.95) mg/dL Est GFR ( Amer) 62.6 (>60) Est GFR (Non-Af Amer) 48.7 (>60) BUN/Creatinine Ratio 30.9 H (8-20) Glucose 205 H (70-100) mg/dL Lactic Acid (0.5-2.0) mmol/L Calcium 9.6 (8.6-10.3) mg/dL Magnesium 1.7 L (1.9-2.7) mg/dL Total Bilirubin 0.90 (0.2-1.0) mg/dL AST 26 (13-39) U/L ALT 22 (7-52) U/L Alkaline Phosphatase 90 (34-104) U/L Troponin I 0.00 (<0.04) ng/mL C-Reactive Protein 337.99 H (< 5.00) mg/L Total Protein 6.5 (6.4-8.9) g/dL Albumin 3.0 L (3.2-5.2) g/dL Globulin 3.5 (2-4) g/dL Albumin/Globulin Ratio 0.9 L (1-3) Lipase < 10 L (11.0-82.0) U/L 04/17/17 04/17/17 Range/Units 04:13 04:28 WBC (3.5-10.8) 10^3/ul RBC (4.0-5.4) 10^6/ul Hgb (12.0-16.0) g/dl Hct (35-47) % MCV (80-97) fL MCH (27-31) pg MCHC (31-36) g/dl RDW (10.5-15) % Plt Count (150-450) 10^3/ul MPV (7.4-10.4) um3 Neut % (Auto) (38-83) % Lymph % (Auto) (25-47) % [place] % (Auto) (1-9) % Eos % (Auto) (0-6) % Baso % (Auto) (0-2) % Absolute Neuts (auto) (1.5-7.7) 10^3/ul Absolute Lymphs (auto) (1.0-4.8) 10^3/ul Absolute Monos (auto) (0-0.8) 10^3/ul Absolute Eos (auto) (0-0.6) 10^3/ul Absolute Basos (auto) (0-0.2) 10^3/ul Absolute Nucleated RBC 10^3/ul Nucleated RBC % INR (Anticoag Therapy) (0.89-1.11) APTT (26.0-36.3) seconds Patient Temperature Not Reportable ABG pH 7.42 (7.35-7.45) ABG pH (Temp Correct) Not Reportable ABG pCO2 37 (35-45) mmHg ABG pCO2 (Temp Corrct Not Reportable ABG pO2 59 L* (80-100) mmHg ABG pO2 (Temp Correct Not Reportable ABG HCO3 24.6 (19-31) mmol/L ABG O2 Saturation 93.4 L (95-98) % ABG Base Excess -0.3 (-2.0-2.0) Respiration Rate Not Reportable O2 Delivery Device oxymask Ventilator Type Not Reportable Vent Mode Not Reportable FiO2 Not Reportable Inspiratory Time Not Reportable PEEP Not Reportable Pressure Support Not Reportable Pressure Control Not Reportable EPAP Not Reportable IPAP Not Reportable BiPAP Not Reportable Sodium (133-145) mmol/L Potassium (3.5-5.0) mmol/L Chloride (101-111) mmol/L Carbon Dioxide (22-32) mmol/L Anion Gap (2-11) mmol/L BUN (6-24) mg/dL Creatinine (0.51-0.95) mg/dL Est GFR ( Amer) (>60) Est GFR (Non-Af Amer) (>60) BUN/Creatinine Ratio (8-20) Glucose (70-100) mg/dL Lactic Acid 1.0 (0.5-2.0) mmol/L Calcium (8.6-10.3) mg/dL Magnesium (1.9-2.7) mg/dL Total Bilirubin (0.2-1.0) mg/dL AST (13-39) U/L ALT (7-52) U/L Alkaline Phosphatase (34-104) U/L Troponin I (<0.04) ng/mL C-Reactive Protein (< 5.00) mg/L Total Protein (6.4-8.9) g/dL Albumin (3.2-5.2) g/dL Globulin (2-4) g/dL Albumin/Globulin Ratio (1-3) Lipase (11.0-82.0) U/L Microbiology and Other Data: Microbiology 04/17/17 06:01 Legionella Urinary Antigen - Final Urine Negative Legionella Streptococcus pneumoniae Ag Screen - Final Negative S. pneumo Antigen Assess/Plan/Problems-Billing Assessment: - Patient Problems (1) Altered mental status Current Visit: Yes Status: Acute Code(s): R41.82 - ALTERED MENTAL STATUS, UNSPECIFIED SNOMED Code(s): 281282993 Comment: Improved per daughter. (2) Lung cancer Current Visit: Yes Status: Acute Code(s): C34.90 - MALIGNANT NEOPLASM OF UNSP PART OF UNSP BRONCHUS OR LUNG SNOMED Code(s): 985454092 Comment: Prior records would be helpful. Changes on CXR may in whole or part be due to previous RT. (3) Polypharmacy Current Visit: Yes Status: Acute Code(s): Z79.899 - OTHER SHELTER (CURRENT ) DRUG THERAPY SNOMED Code(s): 770807691 Comment: Continue decreased duloxetine dose--could contribute to serotonin syndrome. Daughter feels all her other psychotropic meds needs to be maintained at her home doses. (4) HTN (hypertension) Current Visit: Yes Status: Acute Code(s): I10 - ESSENTIAL (PRIMARY) HYPERTENSION SNOMED Code(s): 95725793 Comment: Olmesartan on hold.
[2017-04-20] MEDS ORDERED: Azithromycin IV(*) 250 MG in D5W 250 ML BAG* 250 ML IVPB SCH (12:37)
[2017-04-20] MEDS: Methylphenidate TAB* 10 MG PO PRN (13:01)
[2017-04-20] MEDS: Insulin GLARGINE(*) 1 UNITS UNIT SUBCUT SCH (21:44)
[2017-04-20] MEDS: DULoxetine DR CAP* 60 MG CAP.DR PO SCH (21:47)
[2017-04-20] MEDS: Lidocaine Patch REMOVE* 1 NOTE MISC PATCH OFF SCH (21:51)
[2017-04-21] MEDS: cefTRIAXone VIAL(*) 1,000 MG in D5W 50 ML BAG* 50 ML IVPB SCH (03:54)
[2017-04-21] MEDS: oxyCODONE TAB* 5 MG TAB PO PRN ×2 (07:19→18:05)
[2017-04-21] MEDS: Lidocaine PATCH 5%* 1 PATCH TRANSDERM SCH (09:35)
[2017-04-21] MEDS: Dronabinol CAP* 2.5 MG PO SCH ×2 (09:35→14:48)
[2017-04-21] MEDS: oxyCODONE SR TAB(*) 15 MG TAB.SR PO SCH ×2 (09:36→14:49)
[2017-04-21] MEDS: Insulin LISPRO* 1 UNITS UNIT SUBCUT SCH ×3 (09:36→17:23)
[2017-04-21] MEDS: Omeprazole CAP* 20 MG PO SCH (09:37)
[2017-04-21] MEDS: Megestrol SUSP* 400 MG/10 ML UDC PO SCH (09:38)
[2017-04-21] MEDS: Enoxaparin(*) 40 MG/0.4 ML SYR SUBCUT SCH (09:38)
[2017-04-21] MEDS ORDERED: Azithromycin TAB* 250 MG PO ONE (11:29)
--- NOTE | 2017-04-21 11:36 | DCNOTE ---
Subjective Date of Service: 04/21/17 Interval History: No new c/o. Daughter at bedside, feels patient is progressing adequately. Objective Active Medications: Albuterol (Ventolin 2.5 Mg/3 Ml Neb.Delilah*) 2.5 mg INH Q2H PRN PRN Reason: SOB/WHEEZING Albuterol/Ipratropium (Duoneb (Albuterol 2.5 Mg/Ipratropium 0.5 Mg)) 1 neb INH Q4H PRN PRN Reason: SOB/WHEEZING Alprazolam (Xanax Tab*) 0.25 mg PO Q8H PRN PRN Reason: ANXIETY Last Admin: 04/18/17 00:20 Dose: 0.25 mg Azithromycin (Zithromax Tab*) 250 mg PO ONCE ONE Stop: 04/21/17 11:30 Cefuroxime Axetil (Ceftin Tab 500 Mg(*)) 500 mg PO BID [facility] Dextrose (D50w Syringe 50 Ml*) 12.5 gm IV PUSH .FOR FS < 60 - SS PRN PRN Reason: FS < 60 Dronabinol (Marinol Cap*) 10 mg PO TID [facility] Last Admin: 04/21/17 09:35 Dose: 10 mg Duloxetine HCl (Cymbalta Cap*) 60 mg PO QPM@2100 [facility] Last Admin: 04/20/17 21:47 Dose: 60 mg Enoxaparin Sodium (Lovenox(*)) 40 mg SUBCUT Q24H [facility] Last Admin: 04/21/17 09:38 Dose: 40 mg Insulin Glargine (Lantus(*)) 18 units SUBCUT BEDTIME [facility] Last Admin: 04/20/17 21:44 Dose: 18 unit Insulin Human Lispro (Humalog*) 0 units SUBCUT AC [facility] PRN Reason: Protocol Last Admin: 04/21/17 09:36 Dose: 2 units Lidocaine (Lidoderm 5% Patch*) 3 patch TRANSDERM DAILY [facility] Last Admin: 04/21/17 09:35 Dose: 3 patch Megestrol Acetate (Megestrol Susp*) 400 mg PO QAM [facility] Last Admin: 04/21/17 09:38 Dose: 400 mg Methylphenidate HCl (Ritalin Tab*) 20 mg PO 1200 PRN PRN Reason: BEHAVIOR Last Admin: 04/20/17 13:01 Dose: 20 mg Methylphenidate HCl (Ritalin Tab*) 20 mg PO 0600 PRN PRN Reason: BEHAVIOR Methylphenidate HCl (Ritalin Tab*) 5 mg PO 1600 PRN PRN Reason: BEHAVIOR Morphine Sulfate (Morphine Inj (Syringe)*) 2 mg IV Q2HR PRN PRN Reason: PAIN Last Admin: 04/18/17 07:22 Dose: 2 mg Omeprazole (Prilosec Cap*) 20 mg PO QAM [facility] Last Admin: 04/21/17 09:37 Dose: 20 mg Ondansetron HCl (Zofran Inj*) 4 mg IV Q4H PRN PRN Reason: NAUSEA/VOMITING Last Admin: 04/19/17 13:59 Dose: 4 mg Oxycodone HCl (Roxycodone Tab*) 10 mg PO QID PRN PRN Reason: PAIN Last Admin: 04/21/17 07:19 Dose: 10 mg Oxycodone HCl (Oxycontin(*)) 30 mg PO TID [facility] Last Admin: 04/21/17 09:36 Dose: 30 mg Pharmacy Profile Note (Lidocaine Patch Remove*) 1 note PATCH OFF 2100 [facility] Last Admin: 04/20/17 21:51 Dose: 1 note Vital Signs 04/20/17 04/20/17 04/20/17 12:10 13:02 14:52 Temperature Pulse Rate Respiratory 18 19 16 Rate Blood Pressure (mmHg) O2 Sat by Pulse Oximetry 04/20/17 04/20/17 04/20/17 14:53 14:54 15:51 Temperature 98.3 F Pulse Rate 96 Respiratory 16 16 18 Rate Blood Pressure 125/74 (mmHg) O2 Sat by Pulse 96 Oximetry 04/20/17 04/20/17 04/20/17 17:05 20:00 20:09 Temperature 98.0 F Pulse Rate 92 Respiratory 16 20 18 Rate Blood Pressure 127/69 (mmHg) O2 Sat by Pulse 95 Oximetry 04/20/17 04/20/17 04/20/17 21:44 23:48 23:57 Temperature 98.1 F Pulse Rate 111 Respiratory 22 20 22 Rate Blood Pressure 143/76 (mmHg) O2 Sat by Pulse 97 Oximetry 04/21/17 04/21/17 04/21/17 00:36 04:01 04:08 Temperature 98.0 F Pulse Rate 98 Respiratory 18 20 16 Rate Blood Pressure 126/70 (mmHg) O2 Sat by Pulse 93 Oximetry 04/21/17 04/21/17 04/21/17 07:19 07:45 08:00 Temperature 98.0 F Pulse Rate 97 Respiratory 18 16 20 Rate Blood Pressure 122/71 (mmHg) O2 Sat by Pulse 98 Oximetry 04/21/17 04/21/17 09:35 09:36 Temperature Pulse Rate Respiratory 22 22 Rate Blood Pressure (mmHg) O2 Sat by Pulse Oximetry Oxygen Devices in Use Now: Nasal Cannula Appearance: Alert, supine in bed. Neutral affect. Looks comfortable. No cough during my visit. Eyes: No Scleral Icterus Neck: NL Appearance and Movements; NL JVP, No Thyroid Enlargement, Masses Respiratory: Symmetrical Chest Expansion and Respiratory Effort, Clear to Auscultation, Clear to Percussion Cardiovascular: NL Sounds; No Murmurs; No JVD, RRR, No Edema, - Extremities: No Edema, No Clubbing, Cyanosis, - Skin: No Rash or Ulcers, No Nodules or Sclerosis, - Neurological: Alert and Oriented x 3, NL Sensation Result Diagrams: 04/19/17 07:15 04/19/17 06:08 Additional Lab and Data: Lab Results 04/17/17 04/17/17 04/17/17 Range/Units 04:13 04:13 04:13 WBC 10.3 (3.5-10.8) 10^3/ul RBC 3.43 L (4.0-5.4) 10^6/ul Hgb 10.4 L (12.0-16.0) g/dl Hct 30 L (35-47) % MCV 88 (80-97) fL MCH 30 (27-31) pg MCHC 34 (31-36) g/dl RDW 13 (10.5-15) % Plt Count 258 (150-450) 10^3/ul MPV 7 L (7.4-10.4) um3 Neut % (Auto) 82.7 (38-83) % Lymph % (Auto) 7.1 L (25-47) % Geary % (Auto) 9.6 H (1-9) % Eos % (Auto) 0.2 (0-6) % Baso % (Auto) 0.4 (0-2) % Absolute Neuts (auto) 8.5 H (1.5-7.7) 10^3/ul Absolute Lymphs (auto) 0.7 L (1.0-4.8) 10^3/ul Absolute Monos (auto) 1.0 H (0-0.8) 10^3/ul Absolute Eos (auto) 0 (0-0.6) 10^3/ul Absolute Basos (auto) 0 (0-0.2) 10^3/ul Absolute Nucleated RBC 0 10^3/ul Nucleated RBC % 0 INR (Anticoag Therapy) 1.05 (0.89-1.11) APTT 26.7 (26.0-36.3) seconds Patient Temperature ABG pH (7.35-7.45) ABG pH (Temp Correct) ABG pCO2 (35-45) mmHg ABG pCO2 (Temp Corrct ABG pO2 (80-100) mmHg ABG pO2 (Temp Correct ABG HCO3 (19-31) mmol/L ABG O2 Saturation (95-98) % ABG Base Excess (-2.0-2.0) Respiration Rate O2 Delivery Device Ventilator Type Vent Mode FiO2 Inspiratory Time PEEP Pressure Support Pressure Control EPAP IPAP BiPAP Sodium 129 L (133-145) mmol/L Potassium 3.5 (3.5-5.0) mmol/L Chloride 97 L (101-111) mmol/L Carbon Dioxide 22 (22-32) mmol/L Anion Gap 10 (2-11) mmol/L BUN 34 H (6-24) mg/dL Creatinine 1.10 H (0.51-0.95) mg/dL Est GFR ( Amer) 62.6 (>60) Est GFR (Non-Af Amer) 48.7 (>60) BUN/Creatinine Ratio 30.9 H (8-20) Glucose 205 H (70-100) mg/dL Lactic Acid (0.5-2.0) mmol/L Calcium 9.6 (8.6-10.3) mg/dL Magnesium 1.7 L (1.9-2.7) mg/dL Total Bilirubin 0.90 (0.2-1.0) mg/dL AST 26 (13-39) U/L ALT 22 (7-52) U/L Alkaline Phosphatase 90 (34-104) U/L Troponin I 0.00 (<0.04) ng/mL C-Reactive Protein 337.99 H (< 5.00) mg/L Total Protein 6.5 (6.4-8.9) g/dL Albumin 3.0 L (3.2-5.2) g/dL Globulin 3.5 (2-4) g/dL Albumin/Globulin Ratio 0.9 L (1-3) Lipase < 10 L (11.0-82.0) U/L 04/17/17 04/17/17 Range/Units 04:13 04:28 WBC (3.5-10.8) 10^3/ul RBC (4.0-5.4) 10^6/ul Hgb (12.0-16.0) g/dl Hct (35-47) % MCV (80-97) fL MCH (27-31) pg MCHC (31-36) g/dl RDW (10.5-15) % Plt Count (150-450) 10^3/ul MPV (7.4-10.4) um3 Neut % (Auto) (38-83) % Lymph % (Auto) (25-47) % Geary % (Auto) (1-9) % Eos % (Auto) (0-6) % Baso % (Auto) (0-2) % Absolute Neuts (auto) (1.5-7.7) 10^3/ul Absolute Lymphs (auto) (1.0-4.8) 10^3/ul Absolute Monos (auto) (0-0.8) 10^3/ul Absolute Eos (auto) (0-0.6) 10^3/ul Absolute Basos (auto) (0-0.2) 10^3/ul Absolute Nucleated RBC 10^3/ul Nucleated RBC % INR (Anticoag Therapy) (0.89-1.11) APTT (26.0-36.3) seconds Patient Temperature Not Reportable ABG pH 7.42 (7.35-7.45) ABG pH (Temp Correct) Not Reportable ABG pCO2 37 (35-45) mmHg ABG pCO2 (Temp Corrct Not Reportable ABG pO2 59 L* (80-100) mmHg ABG pO2 (Temp Correct Not Reportable ABG HCO3 24.6 (19-31) mmol/L ABG O2 Saturation 93.4 L (95-98) % ABG Base Excess -0.3 (-2.0-2.0) Respiration Rate Not Reportable O2 Delivery Device oxymask Ventilator Type Not Reportable Vent Mode Not Reportable FiO2 Not Reportable Inspiratory Time Not Reportable PEEP Not Reportable Pressure Support Not Reportable Pressure Control Not Reportable EPAP Not Reportable IPAP Not Reportable BiPAP Not Reportable Sodium (133-145) mmol/L Potassium (3.5-5.0) mmol/L Chloride (101-111) mmol/L Carbon Dioxide (22-32) mmol/L Anion Gap (2-11) mmol/L BUN (6-24) mg/dL Creatinine (0.51-0.95) mg/dL Est GFR ( Amer) (>60) Est GFR (Non-Af Amer) (>60) BUN/Creatinine Ratio (8-20) Glucose (70-100) mg/dL Lactic Acid 1.0 (0.5-2.0) mmol/L Calcium (8.6-10.3) mg/dL Magnesium (1.9-2.7) mg/dL Total Bilirubin (0.2-1.0) mg/dL AST (13-39) U/L ALT (7-52) U/L Alkaline Phosphatase (34-104) U/L Troponin I (<0.04) ng/mL C-Reactive Protein (< 5.00) mg/L Total Protein (6.4-8.9) g/dL Albumin (3.2-5.2) g/dL Globulin (2-4) g/dL Albumin/Globulin Ratio (1-3) Lipase (11.0-82.0) U/L Microbiology and Other Data: Microbiology 04/17/17 06:01 Legionella Urinary Antigen - Final Urine Negative Legionella Streptococcus pneumoniae Ag Screen - Final Negative S. pneumo Antigen Assess/Plan/Problems-Billing Assessment: - Patient Problems (1) Altered mental status Current Visit: Yes Status: Acute Code(s): R41.82 - ALTERED MENTAL STATUS, UNSPECIFIED SNOMED Code(s): 626505029 Comment: Improved per daughter. (2) Lung cancer Current Visit: Yes Status: Acute Code(s): C34.90 - MALIGNANT NEOPLASM OF UNSP PART OF UNSP BRONCHUS OR LUNG SNOMED Code(s): 784566314 Comment: Daughter will bring patient back to [place] 04/22, ensure close fup with her medical providers there, including [facility]. Patient to get CDROM of [facility] and CT scan to bring with her. 5th dose azith given orally 04/21, to start cefuroxime 500 mg bid x 4 days on 12.3 in PM. (3) Polypharmacy Current Visit: Yes Status: Acute Code(s): Z79.899 - OTHER [employer]YROLL ANALYST (CURRENT ) DRUG THERAPY SNOMED Code(s): 839455974 Comment: Continue decreased duloxetine dose--could contribute to serotonin syndrome. Daughter feels all her other psychotropic meds needs to be maintained at her home doses. (4) HTN (hypertension) Current Visit: Yes Status: Acute Code(s): I10 - ESSENTIAL (PRIMARY) HYPERTENSION SNOMED Code(s): 50802260 Comment: Olmesartan on hold. Status and Disposition: Discharge now. Fup her [place] providers. O2 tank to go with pt.
--- NOTE | 2017-04-21 11:56 | PN ---
Progress Note - Progress Note Date of Service: 04/21/17 Note: Time spent on discharge 55 minutes.
[2017-04-21] MEDS: Methylphenidate TAB* 10 MG PO PRN (12:09)
--- NOTE | 2017-04-21 13:42 | DS ---
DISCHARGE SUMMARY: DATE OF ADMISSION: 04/17/17 DATE OF DISCHARGE: 04/21/17 HISTORY OF PRESENT ILLNESS: This is a 72-year-old woman, presented with altered mental status. She was noted to be hypoxic. She has had lung cancer, with surgery and radiation therapy. It was difficult to evaluate her chest x- ray. She was thought to likely have pneumonia. She was given azithromycin, ceftriaxone, and vancomycin. The vancomycin was later discontinued. She had a drug holiday from many of her psychrotrophic meds for the first 24 hours. The daughter felt that these were all important and they were all reinstituted. I did decrease the duloxetine from 90 mg to 60 mg daily as this could have affected her mental status as well. The daughter was okay with this. The dose had recently been increased from 60 to 90 mg about a couple months ago. The patient did not have a fever in the hospital. White count was 10.3 with repeat of 8.3. Her mental status fluctuated some; however, she was able to adequately eat and drink. She was somewhat hypoxic and qualified for home oxygen, which was provided (3 O2 tanks and a concentrator). DISCHARGE DIAGNOSES: 1. Possible pneumonia. 2. Lung cancer. 3. Polypharmacy. 4. Hypertension. 5. Diabetes. DISCHARGE MEDICATIONS: 1. Glargine insulin 18 units at bedtime. 2. Lispro insulin with meals, as prescribed. 3. Megestrol 400 mg daily. 4. Methylphenidate 20 mg at noon p.r.n. 5. Cefuroxime 500 mg b.i.d. for 4 days or 8 doses. 6. Gabapentin 200 mg h.s. 7. Lidocaine patch 2 daily. 8. Omeprazole [address] 2 tablets every evening, total of 60 mg. 10. Oxycodone SR 30 mg t.i.d. p.r.n. 11. Oxycodone IR 10 mg q.i.d. p.r.n. 12. Methylphenidate 5 mg at 6 p.m. p.r.n. 13. Methylphenidate 20 mg at 6 p.m. p.r.n. 14. Fenofibrate 48 mg h.s. 15. Dronabinol 10 mg t.i.d. 16. Docusate 100 mg b.i.d. 17. Calcium 850 mg b.i.d. [id number]/[facility] #: [id number]
[2017-04-21] MEDS ORDERED: Ondansetron TAB* 4 MG PO PRN (14:50)
[2017-04-21 15:29] VITALS: BP 119/62
[2017-04-21] MEDS ORDERED: ceFUROXime TAB(*) 250 MG PO SCH (21:00)
== END 2017-04-21 18:22 | disposition home or self-care (01) | DRG 871 ==
LOC: ED 03:07 → ICU 05:37 → MED 04-18 17:52
PROVIDERS: ADMIT Pediatrics; ATTEND Internal Medicine
DX: A41.9 Sepsis, unspecified organism (principal); J18.8 Other pneumonia, unspecified organism; J96.01 Acute respiratory failure with hypoxia; G93.41 Metabolic encephalopathy; C34.90 Malignant neoplasm of unspecified part of unspecified bronchus or lung; E11.9 Type 2 diabetes mellitus without complications; J47.9 Bronchiectasis, uncomplicated; M54.9 Dorsalgia, unspecified; M48.00 Spinal stenosis, site unspecified; K21.9 Gastro-esophageal reflux disease without esophagitis
CPT/HCPCS: 36415; 36600; 70450; 71010; 80048; 80053; 81003; 82803; 83605; 83690; 83735; 84443; 84484; 85025; 85610; 85730; 86140; 87040; 87899; 93005; 94660; 94760; A9270-GY; J0456; J0696; J1644; J1650; J2270; J2405; J2930; J3370